=== PATIENT | female | born 1975 | race African-American/Black ===

== ENCOUNTER 2021-03-08 22:29 | Emergency (ER) | payer SELFPAY ==
[2021-03-08 22:31] VITALS: BP 192/111; PULSE 119; RESP 16; TEMP 35.9; O2SAT 98; BMI 28.3
[2021-03-08 23:26] VITALS: BP 172/104
[2021-03-08 23:46] VITALS: BP 165/108
[2021-03-08 23:59] LABS: Absolute Lymphocyte Count 1.55 X10^3/uL (0.83-4.51); Absolute Neutrophil Count 2.6 X10^3/uL (2.0-7.7); Basophil# 0.03 X10^3/uL; Basophil% 0.6 % (0-1); Eosinophil# 0.11 X10^3/uL; Eosinophils% 2.3 % (0-5); Hematocrit 42.6 % (37-47); Hemoglobin 14.3 g/dL (12.0-15.0); Lymphocyte # 1.55 X10^3/ul (0.83-4.51); Mean Corp Hgb Conc 33.6 g/dL (32-36); Mean Corpuscular Hgb 28.8 pg (27.0-32.0); Mean Corpuscular Volume 85.7 fL (81-99); Mean Platelet Vol. 9.1 fl (6.2-12.0); Monocyte# 0.37 X10^3/uL; Monocyte% 7.9 % (0-10); NRBC Flagged by Analyzer 0 % (0-5); Neutrophil # 2.59 X10^3/uL (2.7-7.7); Neutrophil % 55.3 % (47-70); Platelet Count 291 K/mm3 (150-450); RBC Distribution Width CV 13.9 % (11.6-14.6); RBC Distribution Width SD 43.3 fl (35.1-43.9); Red Blood Count 4.97 M/mm3 (4.2-5.4); White Blood Count 4.7 K/mm3 (4.4-11.0)
--- NOTE | 2021-03-09 | CT_ITS ---
STUDY: CT BRAIN WITHOUT CONTRAST REASON FOR EXAM: Female, 45 years old. headache, hypertension RADIATION DOSAGE (If Supplied By Facility): CTDIvol = ( 44.99 ) mGy, DLP = ( 745.49 ) mGycm TECHNIQUE: Transaxial CT imaging of the brain was performed without administration of intravenous contrast material. Individualized dose optimization techniques were used for this CT. COMPARISON: No relevant priors. FINDINGS: Normal soft tissue structures. Normal calvarium. Normal size ventricles and extra-axial spaces for the patient''s age. Normal white matter tracts of the cerebral hemispheres. Normal basal ganglia and thalami. Normal brainstem. Normal cerebellum. There is no intracranial hemorrhage. There are no findings of an acute ischemic infarction. Normal visualized paranasal sinuses. CT/Brain/Head without Contrast IMPRESSION: Normal unenhanced CT scan of the brain. Electronically Signed: Dedra Arreaga MD at 0:30 EDT Tel , Service support ,
--- NOTE | 2021-03-09 00:10 | EDS_ITS ---
HPI History of Present Illness Chief Complaint: Hypertension Informant: patient Onset/Context/Timing Onset: Days Quality: 190s Current Severity: Moderate Worsened by: Nothing Relieved by: Nothing Associated Symptoms Associated Symptoms: Headache Narrative Narrative: Patient has been getting headaches over the past week. She was advised to check her blood pressures. They have been in the 190s systolic. She does not have a history of hypertension and does not take anything for hypertension. She does not have a family physician. No other associated symptoms or complaints. Prior similar symptoms: No PFSH PFSH Home Medications hydrochlorothiazide 25 mg PO DAILY 30 Days #30 tab 03/09/21 [Rx Last Taken Unknown] Allergy/AdvReac Type Severity Reaction Status Date / Time No Known Allergies Allergy Verified 03/08/21 22:30 Surgical History H/O: hysterectomy Social History Smoking Status: Current every day smoker tobacco type: cigarettes ROS ROS ED Constitutional Constitutional ED: Reports systems reviewed and no addt'l complaints, except as documented Eyes Eyes: Reports systems reviewed and no addt'l complaints, except as documented ENT ENT ED: Reports systems reviewed and no addt'l complaints, except as documented Cardiovascular Cardiovascular: Reports systems reviewed and no addt'l complaints, except as documented Respiratory/Chest Respiratory/Chest: Reports systems reviewed and no addt'l complaints, except as documented Gastrointestinal Gastrointestinal: Reports systems reviewed and no addt'l complaints, except as documented Genitourinary Genitourinary ED: Reports systems reviewed and no addt'l complaints, except as documented Musculoskeletal Musculoskeletal: Reports systems reviewed and no addt'l complaints, except as documented Integumentary Reports systems reviewed and no addt'l complaints, except as documented Neurologic Neurologic: Reports other Details: headaches Psychiatric Psychiatric: Reports systems reviewed and no addt'l complaints, except as documented Endocrine Endocrinology: Reports systems reviewed and no addt'l complaints, except as documented Hematologic/Lymphatic Hematologic/Lymphatic: Reports systems reviewed and no addt'l complaints, except as documented EXAM Physical Exam Const Vital Signs: 03/08/21 22:31 03/08/21 23:26 03/08/21 23:46 Temperature 96.7 F L Temperature Source Temporal Pulse Rate 119 H Respiratory Rate 16 Respiratory Effort Normal Non-Labored Respiratory Pattern Normal Blood Pressure 192/111 H 172/104 H 165/108 H Blood Pressure Mean 138 126 127 Pulse Ox 98 Oxygen Delivery Method Room Air Room Air Positive well nourished and well developed General Appearance ED: active, cooperative, well kempt and well developed HEENT Reports normocephalic and head/scalp atraumatic normocephalic and normal to inspection Face and Sinus: normal facial exam Nose: external nose normal External Ear: external ears normal Eyes PERRL and EOMs intact bilaterally General Eye ED: Yes normal appearance of both eyes Neck full ROM General: normal visual inspection Resp normal respiratory effort and normal air movement Cardio regular rate and regular rhythm GI normal to inspection, nondistended, normoactive bowel sounds Extremity normal to inspection and full ROM Neuro oriented x3, CN's II-XII intact bilaterally, moves all extremities and no focal motor deficits Speech: speech normal Motor Exam: muscle tone normal throughout Psych Appearance: grossly normal and appropriate MDM MDM MDM Narrative Medical decision making narrative: Patient's CT brain and lab results were all reassuring/unremarkable. Her headache was treated with Toradol as she was driving. Her blood pressure remained elevated, 108 systolic. She was treated with 0.1 mg of clonidine. We will start her on a course of HCTZ 25 mg daily. She was referred to primary care for follow-up. Hypertension is a chronic condition and can cause damage over the long-term. She was advised that very high blood pressures can cause acute/immediate problems and she should return right away if she has any headache, stroke symptoms, chest pain, or any other concerning symptoms. Lab Data Attestation: I reviewed the patient's lab results. Labs: Laboratory Results - last 24 hr 03/08/21 03/08/21 23:52 23:52 WBC 4.7 RBC 4.97 Hgb 14.3 Hct 42.6 MCV 85.7 MCH 28.8 MCHC 33.6 RDW Std Deviation 43.3 RDW Coeff of Eben 13.9 Plt Count 291 MPV 9.1 Immature Gran % (Auto) 0.900 Neut % (Auto) 55.3 Lymph % (Auto) 33.0 [place] % (Auto) 7.9 Eos % (Auto) 2.3 Baso % (Auto) 0.6 Absolute Neuts (auto) 2.6 Absolute Lymphs (auto) 1.55 Nucleated RBC % 0 Sodium 139 Potassium 4.5 Chloride 104 Carbon Dioxide 27.0 Anion Gap 8 BUN 11 Creatinine 0.73 Estim Creat Clear Calc 85.73 Est GFR (MDRD) Af Amer 110 Est GFR (MDRD) Non-Af 91 BUN/Creatinine Ratio 15.1 Glucose 96 Calcium 8.9 Radiography Diagnostic Testing: Radiology Impression Brain CT 03/09/21 00:00 IMPRESSION: Normal unenhanced CT scan of the brain. Electronically Signed: Dedra Arreaga MD at 0:30 EDT Tel , Service support , Discharge Plan Triage Chief Complaint: Hypertension ED Provider: Alli [place] Dx/Rx/DC Orders Clinical Impression: Hypertension Instructions: ED Hypertension, New (Begin Treatment) Prescriptions: New hydrochlorothiazide 25 mg tablet 25 mg PO DAILY 30 Days Qty: 30 RF: 0 Primary Care Provider: Care Physician,No Primary Referrals: Mary Anne Romero [NON-STAFF] - Care Physician,No Primary [Primary Care Provider] - Disposition Disposition: Home, self care
[2021-03-09 00:14] LABS: Anion Gap 8 (5-15); BUN 11 mg/dL (7-18); BUN/Creat Ratio 15.1 RATIO (10-20); Calcium,Total 8.9 mg/dL (8.5-10.1); Chloride 104 mmol/L (98-107); Creatinine, Serum 0.73 mg/dL (0.55-1.02); EST Glomerular Filtration Rate 91 mL/min (>60); Est Glom Filt Rate - Afr Amer 110 mL/min (>60); Estimated Creatinine Clearance 85.73 ml/min; Glucose 96 mg/dL (74-106); Potassium 4.5 mmol/L (3.5-5.1); Sodium Level 139 mmol/L (136-145)
[2021-03-09 01:06] VITALS: BP 169/98
[2021-03-09] MEDS: cloNIDine HCl 0.1 MG Tablet PO (01:06)
[2021-03-09] MEDS: Ketorolac 15 MG/ML Vial IV (01:06)
[2021-03-09 01:09] VITALS: BP 169/98
== END 2021-03-09 01:29 | disposition home or self-care (01) ==
PROVIDERS: Emergency Provider Emergency Medicine
DX: I10 Essential (primary) hypertension (principal); F17.210 Nicotine dependence, cigarettes, uncomplicated
CPT/HCPCS: 70450; 80048; 85025; 96374; 99284; A4216